=== PATIENT | male | born 1990 | race Caucasian/White ===

== ENCOUNTER → 2020-07-18 | Outpatient (REF) | payer BC, MEDICAID, OTHER | LOC: M SMT 17:18 | PROVIDERS: ATTEND Urology | DX: N20.0 Calculus of kidney (principal) ==

== ENCOUNTER → 2020-08-22 | Outpatient (REF) | payer MEDICAID, OTHER ==
[2020-09-02 18:06] LABS: CA Oxalate Dihy 40 % (.); Ca Ox Monohydrate 60 % (.); Size 5x6 mm (.)
== END ==
LOC: M SMT 13:26
PROVIDERS: ATTEND Urology
DX: N20.0 Calculus of kidney (principal)